=== PATIENT | male | born 1955 | race Caucasian/White ===

== ENCOUNTER 2017-03-30 19:52 | Emergency (ER) | payer SELFPAY ==
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
[2017-03-31] MEDS ORDERED: Naproxen TAB* 250 MG PO ONE (00:36)
[2017-03-31 01:10] VITALS: BP 157/88
== END 2017-03-31 01:10 | disposition home or self-care (01) ==
LOC: ED 19:52
DX: R07.9 Chest pain, unspecified (principal); M25.50 Pain in unspecified joint; S16.1XXA Strain of muscle, fascia and tendon at neck level, initial encounter; V49.9XXA Car occupant (driver) (passenger) injured in unspecified traffic accident, initial encounter; Y93.9 Activity, unspecified; Y92.9 Unspecified place or not applicable; V89.2XXA Person injured in unspecified motor-vehicle accident, traffic, initial encounter; Y99.9 Unspecified external cause status
CPT/HCPCS: 72125; 99283; A9270-GY

== ENCOUNTER 2019-05-10 17:45 | Emergency (ER) | payer SELFPAY ==
[2019-05-10 18:33] VITALS: BP 170/97
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
== END 2019-05-10 20:15 | disposition home or self-care (01) ==
LOC: UCEAST 17:45
DX: H57.11 Ocular pain, right eye (principal); R23.8 Other skin changes; Z87.891 Personal history of nicotine dependence; Z91.030 Bee allergy status; Z91.040 Latex allergy status
CPT/HCPCS: 99211; G0463

== ENCOUNTER 2019-08-24 05:30 | Observation (INO) | payer BC ==
[2019-08-24] MEDS ORDERED: NS 0.9% 1000 ML** 1,000 ML IV ONE (05:47)
[2019-08-24] MEDS ORDERED: Nitroglycerin TAB 0.4 MG* 0.4 MG TAB SL ONE ×2 (05:49→06:38)
[2019-08-24] MEDS ORDERED: Aspirin 81 mg CHEW TAB* 81 MG TAB.CHEW PO ONE (05:50)
[2019-08-24] MEDS ORDERED: Aspirin 81 mg CHEW TAB* 81 MG TAB.CHEW ONE (05:51)
[2019-08-24] MEDS ORDERED: Nitroglycerin TAB 0.4 MG* 0.4 MG TAB ONE (05:51)
--- NOTE | 2019-08-24 05:52 | ED ---
HPI Chest Pain - HPI Summary HPI Summary: Patient is a 64-year-old male who presents emergency department for chest pain 3-4 hours. Patient states he woke up with substernal chest pressure that has been constant. Radiates down the right side of his chest. Associated symptoms of nausea and anxiousness. Patient denies syncope, vomiting, diaphoresis, shortness of breath, abdominal pain. No recent illness, cough or fever. Past medical history of hypertension, diabetes, hyperlipidemia. Patient notes he had a stress test greater than 10 years ago but no recent workup. Symptoms are moderate in severity. Patient rates pain 7 out of 10. No current modifying factors. - History of Current Complaint Chief Complaint: EDChestPainROMI Time Seen by Provider: 08/24/19 05:41 Hx Obtained From: Patient - Allergy/Home Medications Allergies/Adverse Reactions: Allergies Allergy/AdvReac Type Severity Reaction Status Date / Time bee venom protein (honey bee) Allergy Difficulty Verified 08/24/19 06:23 Breathing latex Allergy Rash Verified 08/24/19 06:23 Home Medications: Home Medications Atorvastatin* [Lipitor 40 MG*] 40 mg PO DAILY WITH MEAL 08/24/19 [History Confirmed 08/24/19] Ibuprofen TAB* [Advil TAB*] 200 mg PO Q6H PRN 08/24/19 [History Confirmed ] Lisinopril TAB* [Prinivil TAB*] 5 mg PO DAILY 08/24/19 [History Confirmed ] Metformin HCl 1,000 mg PO DAILY 08/24/19 [History Confirmed 08/24/19] Naproxen Sodium [Aleve] 220 mg PO DAILY PRN 08/24/19 [History Confirmed 08/24/19 ] PMH/Surg Hx/FS Hx/Imm Hx Previously Healthy: Yes Endocrine/Hematology History: Reports: Hx Diabetes - 2 Cardiovascular History: Reports: Hx Hypercholesterolemia, Hx Hypertension - Surgical History Surgery Procedure, Year, and Place: appendectomy. tonsils - Immunization History Date of Influenza Vaccine: 2018 Immunizations Up to Date: Yes - Family History Known Family History: Positive: None, Non-Contributory - Social History Occupation: Employed Full-time Lives: With Family Alcohol Use: Occasionally Substance Use Type: Reports: None Smoking Status (MU): Former Smoker Review of Systems - ROS Summary Review of Systems Summary: Omeprazole 20 mg PO DAILY 05/10/19 [History Confirmed 05/10/19] Atorvastatin* [Lipitor 40 MG*] 40 mg PO DAILY WITH MEAL 08/24/19 [History Confirmed 08/24/19] Metformin HCl 500 mg PO 08/24/19 [History] Constitutional: Negative Negative: Fever ENT: Negative Positive: Chest Pain Respiratory: Negative Negative: Shortness Of Breath, Cough Positive: Nausea. Negative: Abdominal Pain, Vomiting, Diarrhea Positive: Myalgia Skin: Negative Neurological/Mental Status: Negative All Other Systems Reviewed And Are Negative: Yes Physical Exam Triage Information Reviewed: Yes Vital Signs On Initial Exam: Initial Vitals Pulse Resp BP Pulse Ox 87 7 201/110 99 08/24/19 05:37 08/24/19 05:37 08/24/19 05:37 08/24/19 05:37 Vital Signs Reviewed: Yes Appearance: Positive: Well-Appearing - Pt. sitting up in bed in NAD. Skin: Positive: Warm, Dry Head/Face: Positive: Normal Head/Face Inspection Eyes: Positive: Normal, EOMI, RAYSA Neck: Positive: Supple Respiratory/Lung Sounds: Positive: Clear to Auscultation, Breath Sounds Present Cardiovascular: Positive: Normal, RRR Abdomen Description: Positive: Nontender, Soft Neurological: Positive: Normal, CN Intact II-III Psychiatric: Positive: Affect/Mood Appropriate Procedures - Sedation Patient Received Moderate/Deep Sedation with Procedure: No Diagnostics - Vital Signs Vital Signs Temp Pulse Resp BP Pulse Ox 08/24/19 05:38 98.3 F 84 18 201/110 99 08/24/19 05:37 87 7 201/110 99 - Laboratory Result Diagrams: 08/24/19 05:45 08/24/19 05:45 Lab Statement: Any lab studies that have been ordered have been reviewed, and results considered in the medical decision making process. Chest Pain Course/Dx - Course Course Of Treatment: Pt with substernal CP x 3 hours. BP 201/110. IV and monitor placed. ECG negative for STEMI. Pt. given asa and sublingual nitro. ECG done at 0532 shows a sinus rhythm of 82bpm, normal axis, no ST elevation or depression. Labs unremarkable. CXR negative for acute findings. 0635: Pt.'s pain persist, second nitro given mild improvement of pain. Shortly after pt.' notes pain increased and sharp in nature. ECG repeated. ECG done at 0728 shows a sinus rhythm of 89bmp, no STEMI. 0748: Case discussed with hospitalist, Dr. Najera, who will accept pt. for further workup. Pt. resting comfortably watching TV. Morphine improved pain. BP improving. - Chest Pain Differential Diagnosis/HQI/PQRI: Acute RI, ACS, Angina, Chest Wall, GI Disease, Lower Respiratory Infection, Pulmonary Edema - Diagnoses Provider Diagnoses: Chest pain Discharge ED - Sign-Out/Discharge Documenting (check all that apply): Patient Departure - Discharge Plan Condition: Stable Disposition: ADMITTED TO [facility] Referrals: No Primary Care Phys,NOPCP [Primary Care Provider] - - Billing Disposition and Condition Condition: STABLE Disposition: Admitted to [facility] - Attestation Statements Provider Attestation: I was available for consultation for this patient. I did not evaluate the patient or participate in any medical decision making or disposition decisions unless I am specifically named in the chart as having consulted on the patient. If I have consulted on the patient, please see my own ED note on the patient encounter. Kristy Bowen MD
[2019-08-24 06:16] LABS: ABS Basophils 0.1 10^3/ul (0-0.2); ABS Eosinophils 0.1 10^3/ul (0-0.6); ABS Monocytes 0.4 10^3/ul (0-0.8); ABS Neutrophils 3.5 10^3/ul (1.5-7.7); Eosinophil % 1.5 %; Hematocrit 40 % (42-52); Lymphocyte % 32.8 %; Mean Corpuscular HGB Conc 35 g/dL (31-36); Mean Corpuscular Hemoglobin 29 pg (27-31); Mean Corpuscular Volume 84 fL (80-94); Mean Platelet Volume 8.5 fL (7.4-10.4); Platelet Count 187 10^3/uL (150-450); Red Blood Count 4.77 10^6 /uL (4.18-5.48); Red Cell Distribution Width 14 % (10-15); White Blood Count 6.1 10^3/uL (3.5-10.8)
[2019-08-24 06:30] LABS: Activated Partial Thrombo Time 30.6 seconds (26.0-38.0); INR 1.03 (0.82-1.09)
[2019-08-24 06:33] LABS: Albumin/Globulin Ratio 1.4 (1-3); BUN/Creatinine Ratio 24.7 (8-20); Calcium 8.9 mg/dL (8.6-10.3); EGFR African American 116.8 (>60); EGFR Non-African American 96.6 (>60); Globulin 2.8 g/dL (2-4); Magnesium 1.9 mg/dL (1.9-2.7); Potassium 4.2 mmol/L (3.5-5.0); Total Bilirubin 0.4 mg/dL (0.2-1.0); Total Protein 6.8 g/dL (6.4-8.9)
[2019-08-24] MEDS ORDERED: Morphine 4 MG/ML VIAL (1 ml) 4 MG/ML VIAL IV ONE (07:48)
[2019-08-24] MEDS: Acetaminophen TAB* 325 MG PO PRN ×2 (10:34→16:05)
[2019-08-24] MEDS: Lisinopril TAB* 5 MG PO SCH (10:34)
[2019-08-24] MEDS: Enoxaparin(*) 40 MG/0.4 ML SYR SUBCUT SCH (10:34)
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
[2019-08-24] MEDS ORDERED: Perflutren Lipid Microsphere* 3 ML VIAL ONE (14:58)
[2019-08-24] MEDS: hydrALAZINE IV* 20 MG/ML VIAL IV SLOW PU PRN ×2 (16:34→22:43)
--- NOTE | 2019-08-24 18:54 | ECHO ---
*[facility]* [place] [address] Fax #: [phone] Transthoracic Echocardiogram Patient: Sage Fisher : 1955 Study Date: 08/24/2019 Age: 64 Gender: M HR: 79 bpm Height: 73 in /185.4 cm BSA: 2.28 m^2 Weight: 229.5 lb /104.3 kg BMI: 30.3 kg/m^2 *[employer]: * Tata Mayberry [facility] *Referring Physician: * Evelyn Bal *Reading Physician: * Pat Rider MD Indications: Chest Pain, unspecified. History: Risk factors: Hypertension. Diabetes mellitus. Dyslipidemia. Prior heavy ETOH use. Conclusions Summary: - Left ventricle: The cavity size is normal. Wall thickness is mildly to moderately increased. Systolic function is normal. The estimated ejection fraction is 55-60%. Wall motion is normal; there are no regional wall motion abnormalities. Features are consistent with a pseudonormal left ventricular filling pattern, with concomitant abnormal relaxation and increased filling pressure (grade 2 diastolic dysfunction). - Right ventricle: The cavity size is moderately dilated. Systolic function is normal. - Mitral valve: There is trace regurgitation. - Aortic valve: There is trace regurgitation. - Tricuspid valve: There is trace regurgitation. - Aorta: The ascending aorta internal dimension in the A-P direction, maximal systolic dimension is 3.7 cm. - Ascending aorta: The ascending aorta is mildly dilated. - Pulmonary arteries: Systolic pressure can not be accurately estimated. - No prior echocardiogram to compare is available. Study data: Transthoracic echocardiogram. Procedure: Transthoracic echocardiography was performed. Image quality was poor. The study was technically limited due to body habitus. Intravenous Definity , 3 mlswas administered. Complete 2D, spectral Doppler, and color flow Doppler. Location: Bedside. Patient status: Inpatient. Patient room number: 453. Rhythm: Normal sinus rhythm. Findings Left ventricle: The cavity size is normal. Wall thickness is mildly to moderately increased. There is a prominent septal knuckle. Systolic function is normal. The estimated ejection fraction is 55-60%. Wall motion is normal; there are no regional wall motion abnormalities. Features are consistent with a pseudonormal left ventricular filling pattern, with concomitant abnormal relaxation and increased filling pressure (grade 2 diastolic dysfunction). Right ventricle: The cavity size is moderately dilated. Systolic function is normal. Left atrium: The atrium is mildly dilated. Right atrium: The atrium is normal in size. Mitral valve: The anterior leaflet is mildly thickened. There is no evidence of stenosis. There is trace regurgitation. Aortic valve: The annulus is mildly calcified. The valve is trileaflet. The leaflets are mildly thickened. There is no evidence of stenosis. There is trace regurgitation. Tricuspid valve: The leaflets are normal thickness. There is no evidence of stenosis. There is trace regurgitation. Pulmonic valve: The leaflets are normal thickness. There is no evidence of stenosis. There is trace regurgitation. Aorta: Aortic root: The aortic root is appears normal. Ascending aorta: The ascending aorta is mildly dilated. Aortic arch: The aortic arch is upper normal in size. Pericardium: A prominent pericardial fat pad is present. There is no significant pericardial effusion. Pulmonary arteries: The main pulmonary artery is normal-sized. Systolic pressure can not be accurately estimated. Systemic veins: Inferior vena cava: The vessel is normal in size. There is (>= 50%) respiratory change in the IVC dimension. Measurements Left ventricle Value Ref Aortic valve Value Ref VIDHYA, LAX 4.2 cm 4.2 - 5.8 Sj diam, ED 2.3 cm ---- ESD, LAX 3.1 cm 2.5 - 4.0 Peak v, S 1.02 m/sec ---- FS, LAX 27 % 25 - 43 VTI, S 20.6 cm ---- PW, ED, LAX (H) 1.3 cm 0.6 - 1.0 Mean grad, S 2.0 mm Hg ---- FS 27 % 25 - 43 Peak grad, S 4.0 mm Hg ---- PW, ED (H) 1.3 cm 0.6 - 1.0 LVOT/AV, VTI ratio 0.83 ---- PW/ID, ED 0.3 E', lat sj, TDI (L) 5.9 cm/sec >=10.0 Mitral valve Value Re f E/e', lat sj, 14 Peak E 0.84 m/sec ---- TDI Peak A 0.69 m/sec ---- E', med sj, TDI (L) 5.0 cm/sec >=7.0 Decel time 116 ms -- -- E/e', med sj, 17 Peak grad, D 2.8 mm Hg ---- TDI Peak E/A ratio 1.2 ---- E', avg, TDI 5.5 cm/sec E/e', avg, TDI (H) 15 <=14 Pulmonic valve Value Re f Peak v, S 1.16 m/sec ---- LVOT Value Ref Peak grad, S 5.0 mm Hg ---- Peak adair, S 0.84 m/sec VTI, S 17.0 cm Aortic root Value Ref Mean grad, S 2 mm Hg Root diam 3.5 cm <4.3 Ventricular septum Value Ref Ascending aorta Value Ref IVS, ED (H) 1.5 cm 0.6 - 1.0 AAo AP diam, S 3.7 cm ---- Right ventricle Value Ref Aortic arch Value Ref VIDHYA, LAX 3.7 cm Arch diam 3.2 cm ---- VIDHYA minor ax, A4C (H) 4.3 cm 1.9 - 3.5 mid Decending aorta Value Ref Annika peak adair 0.73 m/sec ---- Left atrium Value Ref AP dim, ES (H) 4.40 cm 3.00 - Inferior vena cava Value Ref 4.00 Diam 2.0 cm ---- ML dim, A4C 4.4 cm SI dim, A4C 5.0 cm Vol/bsa, ES, 1-p 24 ml/m^2 12 - 37 A4C Vol/bsa, ES, A/L 29 ml/m^2 16 - 34 Right atrium Value Ref SI dim, ES 4.9 cm 3.4 - 5.3 ML dim, ES, A4C 4.2 cm 2.6 - 4.4 Estimated RAP 3 mm Hg Legend: (L) and (H) fredo values outside specified reference range. Prepared and electronically signed by Pat Rider MD 08/24/2019 18:53
[2019-08-25 05:33] LABS: HDL Cholesterol 26.2 mg/dL
[2019-08-25] MEDS: hydrALAZINE IV* 20 MG/ML VIAL IV SLOW PU PRN (07:22)
[2019-08-25] MEDS: Lisinopril TAB* 5 MG PO SCH (07:22)
[2019-08-25 08:21] VITALS: BP 147/75
[2019-08-25] MEDS ORDERED: Atorvastatin* 40 MG TAB PO SCH (08:30)
[2019-08-25] MEDS ORDERED: metFORMIN* 1,000 MG TAB PO SCH (09:00)
[2019-08-25] MEDS ORDERED: Lisinopril TAB* 5 MG PO SCH (09:00)
[2019-08-25] MEDS ORDERED: Pantoprazole TAB * 40 MG TAB PO SCH (09:00)
[2019-08-25] MEDS: Enoxaparin(*) 40 MG/0.4 ML SYR SUBCUT SCH (10:08)
[2019-08-25] MEDS ORDERED: Lisinopril TAB* 5 MG PO ONE (10:30)
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
--- NOTE | 2019-08-25 22:47 | DS ---
CC: Dr. Shelton; Dr. Meneses * DISCHARGE SUMMARY: DATE OF ADMISSION: 08/24/19 DATE OF DISCHARGE: 08/25/19 PROVIDER: MIKAELA Reece ATTENDING PHYSICIAN WHILE IN THE HOSPITAL: Dr. Rekha Payan * (dictated by MIKAELA Reece). PRIMARY CARE PROVIDER: Unknown provider in [place], [place]. CONSULTING MACHINE HEEL BUILDER: Dr. Fidencio Boothe. PRIMARY DIAGNOSES: 1. Chest pain, likely related to hypertensive urgency. 2. Heart failure with preserved ejection fraction. SECONDARY DIAGNOSES: 1. Hypertension. 2. Diabetes mellitus type 2. 3. Hypertension. 4. Hyperlipidemia. 5. Gastroesophageal reflux disease. 6. History of concussions. PERTINENT STUDIES WHILE IN THE HOSPITAL: Transthoracic echocardiogram on , grade 2 diastolic dysfunction, EF 55% to 60%, no regional wall motion abnormalities. Please see full report for further details. Nuclear medicine stress test, impression: Small reversible defect of the anterior wall towards the septum suggestive of an area of ischemia. This has been low risk. Chest x-ray on 08/24/19, impression: No active cardiopulmonary disease. HISTORY OF PRESENT ILLNESS/HOSPITAL COURSE: Sage Fisher is a 64-year-old white male with past medical history significant for hypertension, hyperlipidemia, diabetes mellitus type 2, and GERD, who presents to the emergency department due to chest pain and lightheadedness. The patient has been having ongoing sensation of lightheadedness for a week leading up to his presentation and he came to the emergency department on 08/24/19 due to the onset of chest pain and his concern for ACS. The patient was admitted to the hospital and he had negative troponins on 3 readings. His EKG was without any ischemic changes. He had an echocardiogram, which did show diastolic dysfunction which is likely noncontributory to this presentation and he had a stress test that was low risk, but did show some anterior wall reversible ischemia. For this reason, he was seen in consultation by veneer taping machine offbearer, Dr. Fidencio Boothe, who did not believe that this finding by the radiology read of the nuclear scan was of any concern for ACS and felt the patient was safe for discharge. Of note, the patient was significantly hypertensive throughout his hospital stay. His presenting blood pressure was 201/110 and he had his home medications increased and still had blood pressure with the systolic in the 160s to 170s. The patient did still have some mild chest pressure on date of discharge, but was feeling improved and was not feeling dizziness or lightheadedness at rest and he does not have any shortness of breath. Of note, the patient only recently started his medications within the last month, as prior to a month ago he was uninsured for approximately 2 years and had not had any doctor's visits and did not receive any medications. PHYSICAL EXAM: General: Well-developed, well-nourished white male, lying in hospital bed, appearing comfortable, in no acute distress. Eyes: PERRLA. Sclerae anicteric. ENT: Mucous membranes are moist. Lungs: Clear to auscultation throughout. Cardio: Regular rate and rhythm without murmurs, rubs, or gallops. Abdomen: Soft, nontender, nondistended. Extremities: No clubbing, cyanosis, or edema. Neuro : The patient is alert and oriented x3. DISCHARGE PLAN: Discharge instructions: The patient is advised to measure his blood pressure every other day and record it leading up to his followup appointment with [facility]. The patient does currently see a provider in [place], [place], but is planning to have a local PCP and is advised to follow up with the [facility]. He should have a repeat BMP in 1 week. His hemoglobin A1c was found to be elevated, but due to him only starting his metformin 1 month ago, he may be able to lower this; however, he should have close followup and would likely benefit from an additional oral agent at followup. The patient was provided with a prescription for a blood pressure test kit. The patient is advised to please return to the emergency department if he is experiencing loss of consciousness, severe chest pain, difficulty breathing, severe headache, visual changes, unilateral weakness, numbness, tingling of his extremities or slurred speech. The patient should increase his oral intake of fluids to avoid sensation of lightheadedness as this is likely orthostasis. Discharge Diet: Carbohydrate consistent diet. Activity: The patient may return to normal activities as tolerated. DISCHARGE MEDICATIONS: New medications: 1. Lisinopril 10 mg p.o. daily. Continued home medications: 1. Lipitor 40 mg p.o. daily. 2. Metformin 1000 mg p.o. daily. 3. Omeprazole 20 mg p.o. daily. 4. Ibuprofen 200 mg p.o. q.6 hours p.r.n. pain. 5. Naproxen 220 mg p.o. daily p.r.n. pain. CONDITION ON DISCHARGE: Stable. DISPOSITION: Home. TIME SPENT: Approximately 45 minutes was spent on this discharge, approximately half of this time was spent at bedside evaluating the patient and discussing the plan of care. MIKAELA REECE [id number]/[facility] #: [id number] MTDD
[2019-08-26] MEDS ORDERED: Lisinopril TAB* 5 MG PO SCH (09:00)
== END 2019-08-25 11:30 | disposition home or self-care (01) ==
LOC: ED 05:30 → MEDTELE 09:30
PROVIDERS: ADMIT Internal Medicine; ATTEND Internal Medicine
DX: R07.9 Chest pain, unspecified (principal); I11.0 Hypertensive heart disease with heart failure; I50.9 Heart failure, unspecified; E11.9 Type 2 diabetes mellitus without complications; E78.5 Hyperlipidemia, unspecified; K21.9 Gastro-esophageal reflux disease without esophagitis; R42 Dizziness and giddiness; Z79.899 Other long term (current) drug therapy; Z79.84 Long term (current) use of oral hypoglycemic drugs; Z87.891 Personal history of nicotine dependence; Z91.040 Latex allergy status
CPT/HCPCS: 36415; 71045; 78452; 80053; 80061; 83036; 83605; 83735; 84484; 85025; 85379; 85610; 85730; 93005; 93017; 93306; 96361; 96372; 96374; 96375; 96376; 99284; A9270-GY; A9502; C8929; G0378; J0360; J1650; J2270

== ENCOUNTER 2019-08-30 11:35 | Emergency (ER) | payer BC ==
--- OUTSIDE RECORDS SUMMARY | 2019-08-30 11:48 | XMS REPORT | Summary of Care ---
:1955 Author Organization [facility] Address [address] [facility] [place] [address] Care Team Providers Name Role Phone Parul Lopes MASK INSPECTOR Primary Care Provider Reason for Visit Reason Comments Establish Care Encounter Details Date Type Department Care Team Description 08/01/2019 Office Visit [facility] Parul Lopes, Type 2 diabetes mellitus with hyperglycemia, with long-term current use of insulin (HCC) ( Primary Dx); Practice MASK INSPECTOR Depression, unspecified depression type; [address] [facility] [address] Dyslipidemia; [facility] Essential hypertension; [place] [address] [place] [address] Screening for prostate cancer [phone] Allergies Active Allergy Reactions Severity Noted Date Comments Bee Anaphylaxis 02/11/2012 Environmental Dermatologic Reaction 09/07/2013 Latex Swelling 02/11/2012 hives documented as of this encounter (statuses as of 08/02/2019) Medications Medication Sig Dispensed Refills Start Date End Date Status metFORMIN HCL 1000 Take 1 Tab 90 Tab 1 08/01/2019 Active MG Oral by mouth TabIndications: Type DAILY. 2 diabetes mellitus with hyperglycemia, with long-term current use of insulin (HCC) Rosuvastatin Calcium Take 1 Tab 90 Tab 0 08/01/2019 Active (CRESTOR) 20 MG Oral by mouth TabIndications: DAILY. Dyslipidemia lisinopril Take 1 Tab 90 Tab 0 08/01/2019 Active (PRINIVIL, ZESTRIL) by mouth 5 MG Oral DAILY. TabIndications: Essential hypertension sertraline (ZOLOFT) Take 1 Tab 90 Tab 0 08/01/2019 Active 25 MG Oral by mouth TabIndications: DAILY. Depression, unspecified depression type naproxen (NAPROSYN) Take 1 Tab 20 Tab 0 09/28/2016 Discontinued (No 500 MG Oral Tab by mouth 0 longer clinically TWICE indicated) DAILY. amitriptyline Take 1 Tab 90 Tab 3 10/02/2016 Discontinued (No (ELAVIL, ENDEP) 25 by mouth 0 longer clinically MG Oral EVERY indicated) TabIndications: BEDTIME. Headache due to old concussion (HCC) atorvastatin Take 1 Tab 90 Tab 0 10/02/2016 Discontinued (No (LIPITOR) 20 MG Oral by mouth 0 longer clinically TabIndications: DAILY. indicated) Hyperlipidemia, unspecified hyperlipidemia type glipiZIDE Take 2 Tabs 60 Tab 2 10/02/2016 Discontinued (No (GLUCOTROL) 5 MG by mouth 0 longer clinically Oral TabIndications: TWICE indicated) Diabetes mellitus DAILY. without complication (HCC) lisinopril Take 1 Tab 30 Tab 2 10/02/2016 Discontinued (No (PRINIVIL, ZESTRIL) by mouth 0 longer clinically 2.5 MG Oral DAILY. indicated) TabIndications: Essential hypertension metoprolol (TOPROL Take 1 Tab 90 Tab 0 10/02/2016 Discontinued (No XL) 50 MG Oral by mouth 0 longer clinically TABLET SR 24 DAILY. indicated) HRIndications: Essential hypertension Omeprazole delayed Take 20 mg 90 Cap 0 10/02/2016 Discontinued (No rel cap 20 MG Oral by mouth 0 longer clinically CAPSULE DELAYED DAILY. indicated) RELEASE sertraline (ZOLOFT) Take 3 Tabs 45 Tab 0 10/02/2016 Discontinued (No 50 MG Oral by mouth 0 longer clinically TabIndications: DAILY. indicated) Depression, unspecified depression type SYNJARDY 12.5-1000 TAKE 1 60 Tab 0 04/06/2017 Discontinued (No MG Oral TABLET BY 0 longer clinically TabIndications: Type MOUTH DAILY indicated) 2 diabetes mellitus without complication, with long-term current use of insulin (HCC) documented as of this encounter (statuses as of 08/02/2019) Active Problems Problem Noted Date Type 2 diabetes mellitus with hyperglycemia 04/21/2016 Dyslipidemia 09/19/2015 Depression 09/12/2013 Hyperlipidemia 02/11/2012 Essential hypertension 02/11/2012 Chest pain, unspecified 12/26/2007 Other general medical examination for administrative purposes 08/25/2007 Hypertension Diabetes mellitus Acid reflux documented as of this encounter (statuses as of 08/02/2019) Resolved Problems Problem Noted Date Resolved Date Diabetes 09/12/2013 04/21/2016 Type 2 diabetes mellitus 02/11/2012 04/21/2016 Overview: Replaced inactive diagnosis documented as of this encounter (statuses as of 08/02/2019) Immunizations Name Administration Dates Next Due Influenza (IM) Preservative Free 04/21/2016 Pneumococcal Conjugate(13 Valent) 04/21/2016 documented as of this encounter Social History Tobacco Use Types Packs/Day Years Used Date Former Smoker Cigarettes Smokeless Tobacco: Never Used Alcohol Use Drinks/Week oz/Week Comments Yes occasionally, 1-2 beers a month Sex Assigned at Date Recorded Not on file Job Start Date Occupation Industry Not on file Not on file Not on file Travel History Travel Start Travel End No recent travel history available. documented as of this encounter Last Filed Vital Signs Vital Sign Reading Time Taken Comments Blood Pressure 146/78 08/01/2019 2:54 PM EST Pulse 104 08/01/2019 2:54 PM EST Temperature 37 08/01/2019 2:54 PM EST C (98.6 F) Respiratory Rate 16 08/01/2019 2:54 PM EST Oxygen Saturation 99% 08/01/2019 2:54 PM EST Inhaled Oxygen Concentration - - Weight 105.2 kg (232 lb) 08/01/2019 2:54 PM EST Height 185.4 cm (6' 1") 08/01/2019 2:54 PM EST Body Mass Index 30.61 08/01/2019 2:54 PM EST documented in this encounter Progress Notes Parul Lopes NP - 08/01/2019 2:40 PM EST PATIENT: Sage Fisher : 1955 DATE OF SERVICE: 08/01/2019 CHIEF COMPLAINT: Chief Complaint Patient presents with Establish Care Subjective HISTORY OF PRESENT ILLNESS: Sage Fisher is a 64-y.o. male. HPI Patient comes in to re establish care Seen about 3 years ago before losing health insurance At that time he was managed for Diabetes he is on no meds but has been working on his diet. He feels his blood sugar is probably high He is not taking anything for GERD but diet adjustments have helped He is wanting to go back on depression medications Was managed for post concussive syndrome with amitriptyline but is not on this med now. Not currently on statin for DM Not currently on any BP meds No Cp or SOB No NVD He is fasting for blood work. Past Medical History: Diagnosis Date Acid reflux Diabetes mellitus (HCC) Dyslipidemia Hypertension Low testosterone Mental disorder Osteoarthritis Family History Problem Relation Age of Onset Alcohol/Drug Mother Alcohol/Drug Sister Depression/Depressed Sister Suicide - Completed Brother Alcohol/Drug Sister Current Outpatient Medications Medication Sig lisinopril (PRINIVIL, ZESTRIL) 5 MG Oral Tab Take 1 Tab by mouth DAILY. metFORMIN HCL 1000 MG Oral Tab Take 1 Tab by mouth DAILY. Rosuvastatin Calcium (CRESTOR) 20 MG Oral Tab Take 1 Tab by mouth DAILY. sertraline (ZOLOFT) 25 MG Oral Tab Take 1 Tab by mouth DAILY. No current facility-administered medications for this visit. Allergies Allergen Reactions Bee Anaphylaxis Environmental Dermatologic Reaction Latex Swelling hives Social History Socioeconomic History Marital status: Spouse name: Not on file Number of children: Not on file Years of education: Not on file Highest education level: Not on file Occupational History Not on file Social Needs Financial resource strain: Not on file Food insecurity Worry: Not on file Inability: Not on file Transportation needs Medical: Not on file Non-medical: Not on file Tobacco Use Smoking status: Former Smoker Types: Cigarettes Smokeless tobacco: Never Used Substance and Sexual Activity Alcohol use: Yes Comment: occasionally, 1-2 beers a month Drug use: Yes Types: Marijuana Comment: soc Sexual activity: Not Currently Partners: Female Lifestyle Physical activity Days per week: Not on file Minutes per session: Not on file Stress: Not on file Relationships Social connections Talks on phone: Not on file Gets together: Not on file Attends adventism service: Not on file Active member of club or organization: Not on file Attends meetings of clubs or organizations: Not on file Relationship status: Not on file Intimate partner violence Fear of current or ex partner: Not on file Emotionally abused: Not on file Physically abused: Not on file Forced sexual activity: Not on file Other Topics Concern Back Care Not Asked Bike Helmet Not Asked Blood Transfusions Not Asked Caffeine Concern Not Asked Exercise Not Asked Hobby Hazards Not Asked International Travel Not Asked Service Not Asked Occupational Exposure Not Asked Seat Belt Not Asked Self-Exams Not Asked Sleep Concern Not Asked Special Diet Not Asked Stress Concern Not Asked Weight Concern Not Asked Social History Narrative Not on file Over the last 2 weeks, have you been feeling down, depressed, anxious, or hopeless?: 0 Over the past 2 weeks, have you felt little interest or pleasure in doing things ?: 0 REVIEW OF SYSTEMS: ROS As noted in HPI Objective PHYSICAL EXAM: VITALS: BP (!) 146/78 (BP Location: Right arm, Patient Position: Sitting) | Pulse 104 | Temp 98.6F (37 C) (Temporal) | Resp 16 | Ht 6' 1" (1.854 m) | Wt 232 lb (105.2 kg) | SpO2 99% | BMI 30.61 kg/m Body mass index is 30.61 kg/m. Physical Exam Constitutional: Appearance: He is well-developed. Neck: Vascular: No carotid bruit. Cardiovascular: Rate and Rhythm: Normal rate and regular rhythm. Pulmonary: Effort: Pulmonary effort is normal. Breath sounds: Normal breath sounds. Musculoskeletal: Right lower leg: No edema. Left lower leg: No edema. Skin: General: Skin is warm and dry. Neurological: Mental Status: He is alert. ASSESSMENT / IMPRESSION: ICD-9-CM ICD-10-CM 1. Type 2 diabetes mellitus with hyperglycemia, with long-term current use of insulin (HCC) 250.00 E11.65 CBC NO DIFFERENTIAL 790.29 Z79.4 COMPREHENSIVE METABOLIC PANEL V58.67 THYROID STIMULATING HORMONE LIPID PROFILE GLYCOHEMOGLOBIN A1C MICROALBUMIN, RANDOM URINE W/ CREATININE metFORMIN HCL 1000 MG Oral Tab 2. Depression, unspecified depression type 311 F32.9 sertraline (ZOLOFT) 25 MG Oral Tab 3. Dyslipidemia 272.4 E78.5 Rosuvastatin Calcium (CRESTOR) 20 MG Oral Tab 4. Essential hypertension 401.9 I10 lisinopril (PRINIVIL, ZESTRIL) 5 MG Oral Tab 5. Screening for prostate cancer V76.44 Z12.5 PSA, TOTAL (INITIAL SCREEN) Plan DM: patient to update blood work, restart metformin. Depression: restart zoloft Dyslipidemia: patient is going to start crestor. HTN restart lisinopril We spoke about the order for which he should start these meds. 1. Lisinopril 2. Metformin 3. Zoloft. (1 week at 25 then increase to 50mg ) 4. crestor Give some days between so we are able to isolate any side effects. He is wanting to discuss ED But advised this will be discussed at a later visit once we establish current status of his health Follow up in about 6 weeks we will contact with albs sooner though. Reviewed past medical social and surgical histories today and updated the chart. Requested records as appropriate. Author: Parul Lopes NP 08/02/2019 13:04 documented in this encounter Plan of Treatment Date Type Specialty Care Team Description 08/03/2019 Lab Internal Medicine 09/12/2019 Office Visit [facility] Parul Lopes NP [address] [place] [address] [phone] Name Type Priority Associated Diagnoses Order Schedule CBC NO DIFFERENTIAL Lab Routine Type 2 diabetes Expected: 08/01/2019 mellitus with (Approximate), hyperglycemia, with Expires: 08/01/2020 long-term current use of insulin ([facility]) COMPREHENSIVE METABOLIC Lab Routine Type 2 diabetes Expected: 08/01/2019 PANEL mellitus with (Approximate), hyperglycemia, with Expires: 08/01/2020 long-term current use of insulin ([facility]) THYROID STIMULATING HORMONE Lab Routine Type 2 diabetes Expected: 2019 mellitus with (Approximate), hyperglycemia, with Expires: 01/28/2020 long-term current use of insulin ([facility]) LIPID PROFILE Lab Routine Type 2 diabetes Expected: 08/01/2019 mellitus with (Approximate), hyperglycemia, with Expires: 08/01/2020 long-term current use of insulin ([facility]) GLYCOHEMOGLOBIN A1C Lab Routine Type 2 diabetes Expected: 08/01/2019 mellitus with (Approximate), hyperglycemia, with Expires: 08/01/2020 long-term current use of insulin ([facility]) MICROALBUMIN, RANDOM URINE Lab Routine Type 2 diabetes Expected: 08/01/2019 W/ CREATININE mellitus with (Approximate), hyperglycemia, with Expires: 01/28/2020 long-term current use of insulin (HCC) PSA, TOTAL (INITIAL SCREEN) Lab Routine Screening for prostate Expected: cancer (Approximate), Expires: 08/01/2020 Health Maintenance Due Date Last Done Comments Diabetic Eye Exam 1955 DTaP/Tdap/Td Vaccines (1 - 1968 Tdap) FOOT EXAM 1975 ZOSTER IMMUNIZATION SERIES 2007 (1 of 2) PNEUMOCOCCAL 0-64 YRS (1 of 06/16/2016 04/21/2016 1 - PPSV23) HEMOGLOBIN A1C 08/14/2016 02/12/2016, 01/08/2016, 09/17/2015, Additional history exists INFLUENZA VACCINE (#1) 2019 04/21/2016 DEPRESSION SCREENING 08/01/2020 08/01/2019 LIPID DISORDER SCREENING 08/01/2020 08/01/2019, 01/08/2016, 09/17/2015, Additional history exists Colonoscopy 04/10/2021 04/10/2016, 01/12/2013, 01/12/2013, Additional history exists HEPATITIS A IMMUNIZATION Aged Out No longer eligible SERIES based on patient's age to complete this topic HPV IMMUNIZATION SERIES Aged Out No longer eligible based on patient's age to complete this topic MENINGOCOCCAL VACCINE IMM Aged Out No longer eligible based on patient's age to complete this topic documented as of this encounter Goals Goal Patient Goal Associated Recent Patient-Stated? Author Type Problems Progress Blood Pressure Blood Pressure Essential 146/78 No Kala Dunaway, < 140/90 hypertension (08/01/2019 2:54 PM EST) Note: Hypertension Care Plan Based on the patient's clinical history and according to JNC 8 guidelines target blood pressure goal is less than 140/90. Based on the patient's last blood pressure of BP: 138/90 mmHg the patient is at at goal. As your provider, it is important that I advise you regarding: your current medications and help you with any challenges you may face taking your medications as directed (ex. instructions, cost, side effects, and interactions). Important lifestyle changes: exercise, weight reduction, diet, dietary sodium reduction and medication compliance your clinical goals and how you can achieve success: weight reduction, exercise plan and diet improvements medication management: adjusted medications as appropriate patient education/self-management tools provided: Current self-management tools adequate To successfully manage my Hypertension I will: monitor my blood pressure daily, understanding that my goal is less than 140/ 90 per my healthcare provider's recommendation. I will schedule an appointment with my provider if consistent abnormal readings greater than 160/100. take medications every day as prescribed by my healthcare provider and if unable to take them I will discuss with my provider. monitor for symptoms of chest pain, chest tightness/pressure, irregular heartbeat, persistent dizziness, radiating arm pain, and neck or jaw pain. If any of these symptoms are noticed I will seek medical attention immediately by calling 911 exercise/walk 15 minutes 4 day(s) per week. If I experience chest pain, chest tightness, or shortness of breath, I will seek medical attention immediately. follow a diet rich in fruits, vegetables, and low-fat dairy products with reduced content of saturated & total fat. I will reduce my sodium intake daily. An example is the DASH diet. To obtain more information please refer to the DASH Eating Plan listed in Educational Resources. record my blood pressure results. eGBayPacketse is safe and secure way for you to do this in your medical record online. try to obtain an ideal body weight. My recent weight was Weight: 270 lb ( 122.471 kg). My weight loss goal for my next office visit is N/A. limit alcohol consumption. For men two drinks per day and women one drink per day. if currently smoking, will discuss how to quit smoking with my healthcare provider and work towards quitting. Educational Resources: National Heart, Lung, & Blood Mereta http://nhlbi.nih.gov/hbp/index.html The DASH Diet Eating Plan http://www.nhlbi.nih.gov/health/health-topics/ topics/dash/ Academy of Nutrition & DIetetics http://eatright.org National Smoking Cessation Site http://smokefree.gov Blood Pressure < Blood Pressure 146/78 (08/01/2019 No Parul Lopes NP 140/90 2:54 PM EST) Note: This is an individualized treatment (blood pressure) goal for Sage Fisher : Displayed above (on the left) is your goal for blood pressure control. Your most recent blood pressure is also shown above, on the right. You should try to achieve blood pressures that are lower than your goal listed above (on the left). Depression screen (PHQ-9) total score < 5 Depression No Parul Lopes NP Note: This is an individualized treatment (depression) goal for Sage Fisher: Displayed above is your goal for a depression screening (PHQ-9) score that would indicate good control of your depression. Diabetes < 7.0 Diabetes Type 2 diabetes 7.8 (02/12/2016 3:19 Kala Blue MD mellitus PM EDT) Note: Diabetes Care Plan According to current 2014 ADA guidelines the patient A1C goal is less than 7. The patient's last A1C was Lab Results Lab Results Value Date/Time GLYCO 10.5 08/15/2014 1610 GLYCO 11.0 09/07/2013 1502 The patient is:above goal . As your provider, it is important that I advise you regarding: your current medications and help you with any challenges you may face taking your medications as directed (ex. instructions, cost, side effects, and interactions). Important lifestyle changes:exercise, diet, glucose monitoring and medication compliance your clinical goals and how you can achieve success:weight reduction, exercise plan, diet management and glucose monitoring medication management: adjusted medications as appropriate patient education/self-management tools provided: Current self-management tools adequate To successfully manage my Diabetes I will: have lab work every six months if my previous A1c was 7 or less. If my results were greater than 7, I will have lab work every three months. My goal is to control my diabetes by keeping A1c below 7.0 take medications every day as prescribed by my healthcare provider and if unable to take them I will discuss with my provider. exercise/walk 15 minutes 4 day(s) per week. If I experience chest pain, chest tightness, or shortness of breath, I will seek medical attention immediately. check feet daily. If sores or irritation are noticed, will seek medical attention. follow a low carbohydrate and low fat diet. My goal is an LDL (bad cholesterol) number less than 100 when I have my routine lab work. check blood sugar as instructed and will call my healthcare provider if the results are consistently below 70 or above 300. I will monitor for symptoms of low blood sugar (feeling faint, dizzy, lig htheaded, jittery, sweaty, or hungry), if symptoms are noticed, I will eat or drink something (glucose tabs, orange juice, candy) to help raise sugar. record my blood sugar results (including dextrose sticks). Jhonny is safe and secure way for you to do this in your medical record online. try to obtain an ideal body weight. My recent weight was Weight: 270 lb ( 122.471 kg). My weight loss goal for my next office visit is N/A. to prevent kidney problems common to people with diabetes I will complete a yearly Microalbumin to check for protein in urine. I will talk with my healthcare provider about medications to prevent diabetic renal disease. to prevent diabetic retinopathy I will see an eye doctor yearly. A yearly dilated eye exam helps prevent blindness. if currently smoking, will discuss how to quit smoking with my healthcare provider and work towards quitting. Glycohemoglobin A1c < 7.0 Diabetes 7.8 (02/12/2016 3:19 Parul Briseno NP PM EDT) Note: This is an individualized treatment (diabetes control, HgbA1C) goal for Sage Fisher: Displayed above is your progress towards your HgbA1C goal. Your goal is shown above (on the left); your most recent HgbA1C is shown on the right. Note that lower numbers are better. Weight loss vs. 18 mo Lifestyle 0 (08/01/2019 2:54 PM No Parul Lopes NP max (lbs) >= 10 EST) Note: This is an individualized lifestyle goal for Sage Fisher: Your body mass index (BMI) is more than 30. You should lose weight. A reasonable starting goal is to lose 10 pounds. Displayed above is how many pounds you have lost thus far towards your 10 pound weight loss goal. Keep a regular sleep schedule Lifestyle No Parul Lopes NP Note: This is an individualized lifestyle goal for Sage Fisher: Please maintain a regular sleep schedule. This may help with some symptoms of depression. Keep immunizations current Lifestyle No Parul Lopes NP Note: This is an individualized lifestyle goal for Sage Fisher: Please be sure to keep up-to-date on recommended immunizations. For example, this would include a yearly influenza vaccine. Immunization status can be seen by looking at the Health Maintenance sections of your e[employer], Plan of Care, and any After Visit Summaries. Take all prescribed medications as Self-management No Parul Lopes NP directed Note: This is an individualized self-management goal for Sage Fisher: Please take all prescribed medications as directed. 1. Do not skip doses. If you cannot afford your medications, talk with your doctor. 2. Use a pill reminder system such as a pill box if needed. Your pharmacist can help you with this. 3. Contact your Pharmacy 5 days before your medication runs out. If you cannot take your medications for any reasons, talk with your doctor. 4. Please bring all of your medication bottles and inhalers (or a list of all your medications/inhalers) with you to every visit. Potential barriers to meeting all of your care plan goals will continue to be addressed on an ongoing basis. documented as of this encounter Results Not on filedocumented in this encounter Visit Diagnoses Diagnosis Type 2 diabetes mellitus with hyperglycemia, with long-term current use of insulin (HCC) Depression, unspecified depression type Dyslipidemia Other and unspecified hyperlipidemia Essential hypertension Unspecified essential hypertension Screening for prostate cancer Special screening for malignant neoplasm of prostate documented in this encounter (Work) documented as of this encounter
--- NOTE | 2019-08-30 11:52 | ED ---
Hypertension - HPI Summary HPI Summary: The patient is a 64 y/o M presenting to [facility] with a cc of elevated BP and headaches this morning. He reports recent d/c last week from [facility] for ACS workup , with hypertensive episodes and management in the hospital. Upon discharge, he was advised to double his dose of 5mg Lisinopril to 10mg, which he has been compliant with. He has been monitoring his BP at home with SBP readings not below 140s mmHg, but he has improved his diet to decrease sodium and fat intake and is on the keto diet for his diabetes. This morning, he measured his BP with his at-home cuff and had a reading of 213/116 mmHg. He notes intermittent headaches accompanying the elevated pressures. Symptoms rated 4/10 in severity. 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 PMHx: hyperlipidemia. Nonsmoker, no EtOH, no substance use. Medications reviewed. Allergies noted. Home Medications Medication Instructions Recorded Confirmed Type Omeprazole 20 mg PO DAILY 05/10/19 08/24/19 History Atorvastatin* [Lipitor 40 MG*] 40 mg PO DAILY WITH MEAL 08/24/19 08/24/19 History Ibuprofen TAB* [Advil TAB*] 200 mg PO Q6H PRN 08/24/19 08/24/19 History Metformin HCl 1,000 mg PO DAILY 08/24/19 08/24/19 History Naproxen Sodium [Aleve] 220 mg PO DAILY PRN 08/24/19 08/24/19 History Blood Pressure Test Kit [Blood 1 each MC EVERY OTHER DAY #1 kit 08/25/19 Rx Pressure Kit] Lisinopril TAB* [Prinivil TAB 5 10 mg PO DAILY #30 tab 08/25/19 Rx MG*] - History of Current Complaint Chief Complaint: EDHypertension Stated Complaint: HIGH BP PER PT Time Seen by Provider: 08/30/19 11:48 Hx Obtained From: Patient Onset/Duration: Started Days Ago, Still Present, Worse Since - today Timing: Intermittent Reported Blood Pressure Prior To Arrival: 213/116 mmHg Aggravating Factor(s): Nothing Alleviating Factor(s): Nothing Associated Signs & Symptoms: Headaches Current Medications: ACEI - Lisinopril - Allergies/Home Medications Allergies/Adverse Reactions: Allergies Allergy/AdvReac Type Severity Reaction Status Date / Time bee venom protein (honey bee) Allergy Difficulty Verified 08/24/19 06:23 Breathing latex Allergy Rash Verified 08/24/19 06:23 Home Medications: Home Medications Omeprazole 20 mg PO DAILY 05/10/19 [History Confirmed 08/30/19] Atorvastatin* [Lipitor 40 MG*] 40 mg PO DAILY 08/24/19 [History Confirmed ] Metformin HCl 1,000 mg PO DAILY 08/24/19 [History Confirmed 08/30/19] Lisinopril TAB* [Prinivil TAB 5 MG*] 10 mg PO DAILY #30 tab 08/25/19 [Rx Confirmed 08/30/19] PMH/Surg Hx/FS Hx/Imm Hx Endocrine/Hematology History: Reports: Hx Diabetes Cardiovascular History: Reports: Hx Hypercholesterolemia, Hx Hypertension Denies: Hx Peripheral Vascular Disease Sensory History: Reports: Hx Contacts or Glasses Denies: Hx Hearing Aid Opthamlomology History: Reports: Hx Contacts or Glasses - Surgical History Surgical History: Yes Surgery Procedure, Year, and Place: appendectomy. tonsils - Immunization History Date of Influenza Vaccine: 2018 Infectious Disease History: No Infectious Disease History: Denies: Traveled Outside the [place] in Last 30 Days - Family History Known Family History: Negative: Cardiac Disease, Hypertension, Diabetes - Social History Alcohol Use: None Hx Substance Use: No Substance Use Type: Reports: None Hx Tobacco Use: Yes Smoking Status (MU): Former Smoker Review of Systems Positive: Other - elevated BP Positive: Headache All Other Systems Reviewed And Are Negative: Yes Physical Exam - Summary Physical Exam Summary: Constitutional: Well-developed, Well-nourished, Alert. (-) Distressed Skin: Warm, Dry HENT: Normocephalic; Atraumatic Eyes: Conjunctiva normal Neck: Musculoskeletal ROM normal neck. (-) JVD, (-) Stridor, (-) Nuchal rigidity Cardio: Rhythm regular, rate normal, Heart sounds normal; Intact distal pulses; Radial pulses are 2+ and symmetric. (-) Murmur Pulmonary/Chest wall: Effort normal. (-) Respiratory distress, (-) Wheezes, (-) Rales Abd: Soft, (-) tenderness, (-) Distension, (-) Guarding, (-) Rebound Musculoskeletal: (-) Edema Lymph: (-) Cervical adenopathy Neuro: Alert, Oriented x3 Psych: Mood and affect Normal Triage Information Reviewed: Yes Vital Signs On Initial Exam: Initial Vitals Temp Pulse Resp BP Pulse Ox 98.2 F 107 18 172/107 98 08/30/19 11:41 08/30/19 11:41 08/30/19 11:41 08/30/19 11:41 08/30/19 11:41 Vital Signs Reviewed: Yes Procedures - Sedation Patient Received Moderate/Deep Sedation with Procedure: No Diagnostics - Vital Signs Vital Signs Temp Pulse Resp BP Pulse Ox 08/30/19 11:41 98.2 F 107 18 172/107 98 - Laboratory Result Diagrams: 08/30/19 11:53 08/30/19 11:53 Lab Statement: Any lab studies that have been ordered have been reviewed, and results considered in the medical decision making process. - EKG 1156 Cardiac Rate: NL - 96 BPM EKG Rhythm: Sinus Rhythm EKG Comparison: No Significant Change - Compared to 08/25/2019 Summary of EKG Findings: An EKG at 1156 reveals normal sinus rhythm at rate of 96 BPM, nml axis, nml intervals. No STEMI. Compared to 08/25/2019, no significant change. ED physician has reviewed and interpreted this EKG. Hypertension Course/Dx - Course Course Of Treatment: 64 y/o male presents with elevated blood pressure and headache resolved. BP 140/80. -Based on my eval today, no evidence of end organ damage from hypertension. -chemistry wnl,no MAXWELL noted, no chest pain/sob , neuro exam non-focal. Recommendations for BP management: -The pt likely suffers from essential hypertension. -In the absence of a hypertensive emergency, which the pt does not have, there is no indication to aggressively treat elevated blood pressure, even when it approaches the systolic ~180 range. -The patient needs halfway management of their blood pressure. -acutely, the pt may still have an elevated pressure, but over time the medication will take effect. - Diagnoses Provider Diagnoses: Hypertension Discharge ED - Sign-Out/Discharge Documenting (check all that apply): Patient Departure - Patient will be discharged home. - Discharge Plan Condition: Stable Disposition: HOME Patient Education Materials: Chronic Hypertension (ED) Referrals: [facility] [Outside] Additional Instructions: You were seen in the emergency department for high blood pressure. Your pressure here is 140/70. Please continue medications and follow-up with your doctor Thursday. Sometimes the blood pressure you take at home can be wrong, we recommend taking your blood pressure when you have symptoms such as headaches, chest pain, shortness breath that you seek medical attention if you have the symptoms. Please follow up with your primary care doctor in the next 2-3 days. It was a pleasure taking care of you today. - Billing Disposition and Condition Condition: STABLE Disposition: Home - Attestation Statements Document Initiated by Clark: Yes Documenting Scribe: Pat Miller Provider For Whom Clark is Documenting (Include Credential): Dr. Kristy Bowen MD Scribe Attestation: I, Pat Miller, scribed for Dr. Kristy Bowen MD on 08/30/19 at 1229. Scribe Documentation Reviewed: Yes Provider Attestation: The documentation as recorded by the Pat knight accurately reflects the service I personally performed and the decisions made by me, Dr. Kristy Bowen MD Status of Scribe Document: Viewed
[2019-08-30 12:04] LABS: ABS Basophils 0.1 10^3/ul (0-0.2); ABS Eosinophils 0.1 10^3/ul (0-0.6); ABS Lymphocytes 1.6 10^3/ul (1.0-4.8); ABS Monocytes 0.4 10^3/ul (0-0.8); ABS Neutrophils 3.5 10^3/ul (1.5-7.7); Eosinophil % 1.3 %; Hematocrit 43 % (42-52); Hemoglobin 14.9 g/dL (14.0-18.0); Lymphocyte % 28.7 %; Mean Corpuscular HGB Conc 35 g/dL (31-36); Mean Corpuscular Hemoglobin 29 pg (27-31); Mean Corpuscular Volume 83 fL (80-94); Mean Platelet Volume 8.5 fL (7.4-10.4); Nucleated Red Blood Cells % 0.3; Platelet Count 194 10^3/uL (150-450); Red Blood Count 5.16 10^6 /uL (4.18-5.48); Red Cell Distribution Width 14 % (10-15); White Blood Count 5.6 10^3/uL (3.5-10.8)
[2019-08-30 12:25] LABS: Albumin 4.5 g/dL (3.2-5.2); Albumin/Globulin Ratio 1.6 (1-3); Calcium 9.6 mg/dL (8.6-10.3); EGFR Non-African American 92.6 (>60); Globulin 2.9 g/dL (2-4); Potassium 4.5 mmol/L (3.5-5.0); Total Bilirubin 0.5 mg/dL (0.2-1.0); Total Protein 7.4 g/dL (6.4-8.9)
[2019-08-30 14:19] VITALS: BP 147/88
== END 2019-08-30 14:15 | disposition home or self-care (01) ==
LOC: ED 11:35
DX: I10 Essential (primary) hypertension (principal); R51 Headache; E11.9 Type 2 diabetes mellitus without complications; E78.00 Pure hypercholesterolemia, unspecified; Z79.84 Long term (current) use of oral hypoglycemic drugs; Z79.899 Other long term (current) drug therapy; Z87.891 Personal history of nicotine dependence
CPT/HCPCS: 36415; 80053; 85025; 93005; 99283